=== PATIENT | female | born 1960 | race Caucasian/White ===

== ENCOUNTER 2019-10-21 06:50 | Emergency (ER) | payer BC ==
--- OUTSIDE RECORDS SUMMARY | 2019-10-21 06:52 | XMS REPORT ---
:1960 [facility] [address] [place] [address] Care Team Providers Name Role Phone Unavailable Unavailable Unavailable Problems This patient has no known problems. Allergies, Adverse Reactions, Alerts This patient has no known allergies or adverse reactions. Medications This patient has no known medications.
[2019-10-21] MEDS ORDERED: KETOROLAC 30 MG/ML INJ ONE (07:22)
--- NOTE | 2019-10-21 08:24 | RAD REPORT ---
EXAM DESCRIPTION: US - Extremity Venous Uni Ltd - 10/21/2019 8:13 am CLINICAL HISTORY: Left leg pain and swelling, pain primarily lateral calf COMPARISON: None. TECHNIQUE: Real-time sonographic evaluation of the left lower extremity deep venous system was perfo rmed. FINDINGS: Normal compressibility, flow augmentation, phasic flow and spontaneous flow are identified in the left lower extremity common femoral, superficial femoral, popliteal and posterior tibial vein s. No intraluminal filling defects seen. In the calf soft tissues no hematoma or mass identifiable. IMPRESSION: No DVT in the left lower extremity.
--- NOTE | 2019-10-21 08:38 | EDPHYS ---
Physician Documentation [facility] Name: Flower Collins Age: 59 yrs Sex: Female : 1960 Arrival Date: 10/21/2019 Time: 06:56 Bed 14 Private MD: Randall Landry B ED Physician Lj Rogers HPI: 10/21 07:12 This 59 yrs old Female presents to ER via Ambulatory with complaints of Leg cp Pain, Ankle Swelling, Leg swelling. 07:12 The patient presents with pain, that is acute, swelling, tenderness. The complaints cp affect the lateral aspect of left calf and left calf. 07:12 Onset: The symptoms/episode began/occurred 3 day(s) ago. cp 07:12 Context: resulted from an unknown cause, the patient can fully bear weight, the patient cp is able to ambulate, with mild difficulty. Modifying factors: the symptoms are aggravated by movement, laying on back. Associated signs and symptoms: Pertinent positives: calf tenderness, Pertinent negatives numbness, tingling, warmth, weakness. Treatment prior to arrival includes: no previous treatment. Historical: - Allergies: 07:13 No Known Allergies; jl7 - Home Meds: 07:13 levothyroxine 175 mcg tab 1 tab once daily [Active]; diclofenac sodium 50 mg oral TbEC jl7 [Active]; pantoprazole 40 mg oral TbEC [Active]; hydrochlorothiazide 25 mg Oral tab [Active]; Divigel transdermal transdermal [Active]; - PMHx: 07:13 Hypertension; Hypothyroidism; GERD; jl7 - PSHx: 07:13 Cholecystectomy; Hysterectomy; Tonsillectomy; jl7 - Immunization history:: Adult Immunizations unknown. - Coronavirus screen:: The patient has NOT traveled to [place], [place], or [place] in the past 14 days. Proceed with normal triage process as indicated. - Social history:: Smoking status: Patient denies any tobacco usage or history of. - Ebola Screening: : No symptoms or risks identified at this time. ROS: 07:20 Constitutional: Negative for body aches, chills, fever, poor PO intake. cp 07:20 Eyes: Negative for injury, pain, redness, and discharge. cp 07:20 Cardiovascular: Negative for chest pain, palpitations. cp 07:20 ENT: Negative for drainage from ear(s), ear pain, sore throat, difficulty swallowing, cp difficulty handling secretions. 07:20 Respiratory: Negative for cough, shortness of breath, wheezing. 07:20 Abdomen/GI: Negative for abdominal pain, vomiting, diarrhea, constipation. 07:20 Back: Negative for injury or acute deformity, pain with movement, radiated pain. 07:20 MS/extremity: Positive for pain, swelling, tenderness, of the left leg, Negative for injury or acute deformity, decreased range of motion, paresthesias. 07:20 Skin: Negative for rash. 07:20 Neuro: Negative for altered mental status, headache, weakness. 07:20 All other systems are negative. Exam: 07:30 Constitutional: The patient appears in no acute distress, alert, awake, non-toxic, well cp developed, well nourished, obese. 07:30 Head/Face: Normocephalic, atraumatic. cp 07:30 Eyes: Periorbital structures: appear normal, Conjunctiva: normal, Sclera: no appreciated abnormality, Lids and lashes: appear normal, bilaterally. 07:30 ENT: External ear(s): are unremarkable, Nose: is normal, Mouth: is normal. 07:30 Chest/axilla: Inspection: normal. 07:30 Cardiovascular: Rate: normal. 07:30 Respiratory: the patient does not display signs of respiratory distress, Respirations: normal, labored breathing. 07:30 Abdomen/GI: Exam negative for discomfort, distension, guarding, Inspection: abdomen appears normal. 07:30 Back: pain, is absent, ROM is normal, vertebral tenderness, is not appreciated. 07:30 Musculoskeletal/extremity: Extremities: grossly normal except: noted in the posterior aspect of left leg and buttock: pain, swelling, tenderness, Perfusion: the extremity is normally perfused throughout, Sensation intact. DVT Exam: pain, swelling, tenderness. 07:30 Skin: cellulitis, is not appreciated, no rash present. 07:30 Neuro: Motor: moves all fours, strength is normal, Gait: is steady. Vital Signs: 07:13 BP 187 / 99; Pulse 94; Resp 17 S; Temp 98(O); Pulse Ox 99% on R/A; Weight 109.77 kg jl7 (R); Height 5 ft. 4 in. (162.56 cm) (R); Pain 5/10; 08:50 BP 153 / 106; Pulse 80; Resp 16; Pulse Ox 97% ; Pain 2/10; jl7 07:13 Body Mass Index 41.54 (109.77 kg, 162.56 cm) jl7 MDM: 07:02 Patient medically screened. cp 07:30 Differential diagnosis: DVT, sciatica, strain. cp 08:36 Data reviewed: vital signs, nurses notes, radiologic studies, ultrasound, and as a cp result, I will discharge patient. 08:36 Counseling: I had a detailed discussion with the patient and/or guardian regarding: the cp historical points, exam findings, and any diagnostic results supporting the discharge/admit diagnosis, radiology results, to return to the emergency department if symptoms worsen or persist or if there are any questions or concerns that arise at home. 10/21 07:10 Order name: Extremity Venous Unilateral Ltd cp 10/21 08:25 Order name: EDMS Administered Medications: 07:20 Drug: TORadol 60 mg Route: IM; Site: right deltoid; bp 07:50 Follow up: Response: No adverse reaction; Pain is decreased jl7 Disposition: 09:52 Co-signature as Attending Physician, Lj Rogers MD I agree with the assessment and kdr plan of care. Disposition: 10/21/19 08:37 Discharged to Home. Impression: Sciatica, left side. - Condition is Stable. - Discharge Instructions: Sciatica, Back Exercises. - Prescriptions for Cyclobenzaprine 10 mg Oral Tablet - take 1 tablet by ORAL route every 8 hours As needed no driving while taking medication; 20 tablet. Medrol (Noel) 4 mg Oral Tablets, Dose Pack - take 1 tablet by ORAL route as directed - follow package instructions; 1 packet. Tramadol 50 mg Oral Tablet - take 1 tablet by ORAL route every 8 hours as needed. no driving while taking medication; 20 tablet. - Medication Reconciliation Form, Thank You Letter, Antibiotic Education, Prescription Opioid Use form. - Follow up: Private Physician; When: 2 - 3 days; Reason: Recheck today's complaints. - Problem is new. - Symptoms have improved. Signatures: Dispatcher [employer] EDMS Lj Rogers MD MD kdr Page, Corey, PA PA cp Duane Garibay RN RN jl7 Rian Carrillo RN RN bp Corrections: (The following items were deleted from the chart) 08:52 08:37 10/21/2019 08:37 Discharged to Home. Impression: Sciatica, left side. Condition jl7 is Stable. Forms are Medication Reconciliation Form, Thank You Letter, Antibiotic Education, Prescription Opioid Use. Follow up: Private Physician; When: 2 - 3 days; Reason: Recheck today's complaints. Problem is new. Symptoms have improved. cp
--- NOTE | 2019-10-21 08:38 | ER ---
Nurse's Notes [facility] Name: Flower Collins Age: 59 yrs Sex: Female : 1960 Arrival Date: 10/21/2019 Time: 06:56 Bed 14 Private MD: Randall Landry B Diagnosis: Sciatica, left side Presentation: 10/21 07:09 Presenting complaint: Patient states: Left calf pain x 4 days, radiates to left thigh. jl7 Transition of care: patient was not received from another setting of care. Onset of symptoms was October 17, 2019. Risk Assessment: Do you want to hurt yourself or someone else? Patient reports no desire to harm self or others. Initial Sepsis Screen: Does the patient meet any 2 criteria? No. Patient's initial sepsis screen is negative. Does the patient have a suspected source of infection? No. Patient's initial sepsis screen is negative. Care prior to arrival: None. 07:09 Method Of Arrival: Ambulatory jl7 07:09 Acuity: STEVEN 4 jl7 Triage Assessment: 07:13 General: Appears in no apparent distress. uncomfortable, Behavior is calm, cooperative, jl7 appropriate for age. Pain: Complains of pain in left calf Pain radiates to left hamstring Pain currently is 5 out of 10 on a pain scale. at worst was 11 out of 10 on a pain scale. Quality of pain is described as shooting, throbbing, Pain began 2-3 days ago. Is continuous, Also complains of sleeplessness. Neuro: Level of Consciousness is awake, alert, obeys commands, Oriented to person, place, time, situation. Cardiovascular: Patient's skin is warm and dry. Pulses are palpable in left dorsalis pedis artery. Respiratory: Airway is patent Respiratory effort is even, unlabored, Respiratory pattern is regular, symmetrical. Derm: Skin is pink, warm \T\ dry. Musculoskeletal: Reports pain in left calf. Historical: - Allergies: 07:13 No Known Allergies; jl7 - Home Meds: 07:13 levothyroxine 175 mcg tab 1 tab once daily [Active]; diclofenac sodium 50 mg oral TbEC jl7 [Active]; pantoprazole 40 mg oral TbEC [Active]; hydrochlorothiazide 25 mg Oral tab [Active]; Divigel transdermal transdermal [Active]; - PMHx: 07:13 Hypertension; Hypothyroidism; GERD; jl7 - PSHx: 07:13 Cholecystectomy; Hysterectomy; Tonsillectomy; jl7 - Immunization history:: Adult Immunizations unknown. - Coronavirus screen:: The patient has NOT traveled to [place], [place], or [place] in the past 14 days. Proceed with normal triage process as indicated. - Social history:: Smoking status: Patient denies any tobacco usage or history of. - Ebola Screening: : No symptoms or risks identified at this time. Screenin:15 Abuse screen: Denies threats or abuse. Denies injuries from another. Nutritional jl7 screening: No deficits noted. Tuberculosis screening: No symptoms or risk factors identified. Fall Risk None identified. Assessment: 07:15 General: see triage assessment. jl7 08:15 Reassessment: Patient appears in no apparent distress at this time. Patient and/or jl7 family updated on plan of care and expected duration. Pain level reassessed. Patient is alert, oriented x 3, equal unlabored respirations, skin warm/dry/pink. Pain rated 2/10 at this time Patient states symptoms have improved. Vital Signs: 07:13 BP 187 / 99; Pulse 94; Resp 17 S; Temp 98(O); Pulse Ox 99% on R/A; Weight 109.77 kg jl7 (R); Height 5 ft. 4 in. (162.56 cm) (R); Pain 5/10; 08:50 BP 153 / 106; Pulse 80; Resp 16; Pulse Ox 97% ; Pain 2/10; jl7 07:13 Body Mass Index 41.54 (109.77 kg, 162.56 cm) jl7 ED Course: 06:56 Patient arrived in ED. es 06:57 Randall Landry MD is Private Physician. es 06:58 Duane Garibay RN is Primary Nurse. jl7 06:58 Manas Rivers PA is PSYCHIATRICP. cp 06:59 Lj Rogers MD is Attending Physician. cp 07:10 Triage completed. jl7 07:13 Arm band placed on right wrist. jl7 07:15 Patient has correct armband on for positive identification. Placed in gown. Bed in low jl7 position. Call light in reach. Side rails up X 1. Pulse ox on. NIBP on. Warm blanket given. 08:50 No provider procedures requiring assistance completed. Patient did not have IV access jl7 during this emergency room visit. Administered Medications: 07:20 Drug: TORadol 60 mg Route: IM; Site: right deltoid; bp 07:50 Follow up: Response: No adverse reaction; Pain is decreased jl7 Outcome: 08:37 Discharge ordered by . cele 08:50 Discharged to home ambulatory. jl7 08:50 Condition: stable 08:50 Discharge instructions given to patient, Instructed on discharge instructions, follow up and referral plans. medication usage, Demonstrated understanding of instructions, follow-up care, medications, Prescriptions given X 3. 08:52 Patient left the ED. jl7 Signatures: Mary Ann Lynn Corey, PA PA cp Leal, Jahala RN RN jl7 iRan Carrillo RN RN bp
[2019-10-21 08:57] VITALS: TEMP 98
[2019-10-21 08:59] VITALS: BP 153/106; O2SAT 97
== END 2019-10-21 08:52 | disposition home or self-care (01) ==
LOC: ER 06:50
DX: M54.32 Sciatica, left side (principal); I10 Essential (primary) hypertension; E03.9 Hypothyroidism, unspecified
CPT/HCPCS: 93971; 96372; 99283

== ENCOUNTER 2019-10-28 07:23 | Emergency (ER) | payer BC ==
--- OUTSIDE RECORDS SUMMARY | 2019-10-28 07:25 | XMS REPORT ---
:1960 [facility] Address [address] [place] [address] Care Team Providers Name Role Phone Unavailable Unavailable Unavailable Problems This patient has no known problems. Allergies, Adverse Reactions, Alerts This patient has no known allergies or adverse reactions. Medications This patient has no known medications.
--- NOTE | 2019-10-28 08:02 | ER ---
Nurse's Notes [facility] Name: Flower Collins Age: 59 yrs Sex: Female : 1960 Arrival Date: 10/28/2019 Time: 07:26 Bed 8 Private MD: Randall Landry B Diagnosis: Pain in left lower leg-Soleus strain Presentation: 10/28 07:31 Presenting complaint: Patient states: Left lower calf and left ankle pain, pain worsens sg with ambulating, reports pain is worse with extending toes while walking, denies injury/trauma at this time. Transition of care: patient was not received from another setting of care. Onset of symptoms was October 28, 2019. Risk Assessment: Do you want to hurt yourself or someone else? Patient reports no desire to harm self or others. Initial Sepsis Screen: Does the patient meet any 2 criteria? No. Patient's initial sepsis screen is negative. Does the patient have a suspected source of infection? No. Patient's initial sepsis screen is negative. Care prior to arrival: None. 07:31 Method Of Arrival: Wheelchair sg 07:31 Acuity: STEVEN 4 sg Triage Assessment: 07:34 General: Appears in no apparent distress. uncomfortable, well groomed, well developed, sg well nourished, Behavior is calm, cooperative, appropriate for age. Pain: Complains of pain in lateral aspect of left calf, left lateral ankle, left calf and left Achilles Quality of pain is described as aching. Neuro: Level of Consciousness is awake, alert, obeys commands, Oriented to person, place, time, [employer]ator are equal bilaterally Moves all extremities. Cardiovascular: Patient's skin is warm and dry. Chest pain is denied. Respiratory: Airway is patent Respiratory effort is even, unlabored, Respiratory pattern is regular, symmetrical. GI: No signs and/or symptoms were reported involving the gastrointestinal system. : No signs and/or symptoms were reported regarding the genitourinary system. Derm: Skin is pink, warm \T\ dry. Musculoskeletal: Circulation, motion, and sensation intact. Range of motion: intact in all extremities. Historical: - Allergies: 07:34 No Known Allergies; sg - PMHx: 07:34 GERD; Hypertension; Hypothyroidism; sg - PSHx: 07:34 Cholecystectomy; Hysterectomy; Tonsillectomy; sg - Immunization history:: Adult Immunizations up to date. - Coronavirus screen:: The patient has NOT traveled to [place], [place], or [place] in the past 14 days. The patient has NOT had contact with known/suspected case of Coronavirus? Proceed with normal triage procedures. - Social history:: Smoking status: Patient denies any tobacco usage or history of. - Family history:: not pertinent. - Ebola Screening: : Patient negative for fever greater than or equal to 101.5 degrees Fahrenheit, and additional compatible Ebola Virus Disease symptoms Patient denies exposure to infectious person Patient denies travel to an Ebola-affected area in the 21 days before illness onset No symptoms or risks identified at this time. Screenin:05 Abuse screen: Denies threats or abuse. Denies injuries from another. Nutritional sg screening: No deficits noted. Tuberculosis screening: No symptoms or risk factors identified. Never had TB. Fall Risk None identified. Assessment: 07:30 General: Appears in no apparent distress. well groomed, well developed, well nourished. sg Vital Signs: 07:32 BP 163 / 106; Pulse 78; Resp 16; Temp 97.7; Pulse Ox 100% on R/A; Pain 6/10; sg 08:20 BP 140 / 88; Pulse 77; Resp 17; Temp 97.7; Pulse Ox 100% on R/A; sg ED Course: 07:26 Patient arrived in ED. rg4 07:26 Randall Landry MD is Private Physician. rg4 07:31 Manas Stuart MD is Attending Physician. minnie 07:32 Triage completed. sg 07:34 Arm band placed on. sg 07:36 Patient has correct armband on for positive identification. Bed in low position. Call sg light in reach. Side rails up X2. Pulse ox on. NIBP on. 07:44 Duane Garibay RN is Primary Nurse. jl7 08:00 Randall Landry MD is Referral Physician. minnie 08:02 Naoh Ramirez MD is Referral Physician. minnie 08:05 Liam wrap to left ankle. sg 08:22 No provider procedures requiring assistance completed. Patient did not have IV access sg during this emergency room visit. Administered Medications: 08:00 Drug: Motrin 600 mg Route: PO; sg 08:38 Follow up: Response: No adverse reaction sg Outcome: 08:02 Discharge ordered by MD. hartman 08:22 Discharged to home via wheelchair. 08:22 Condition: good 08:22 Discharge instructions given to patient, Instructed on discharge instructions, follow up and referral plans. no drinking with medication, no driving heavy equipment, medication usage, safety practices, crutch walking, Demonstrated understanding of instructions, follow-up care, medications, Prescriptions given X 2. 08:25 Patient left the ED. iw Signatures: Fransisco Diaz RN Manas Espino MD MD cha Williams, Irene, RN RN iw Garcia, Rubi rg4 Duane Garibay RN RN jl7
[2019-10-28] MEDS ORDERED: IBUPROFEN 200 MG TAB PO ONE (08:03)
--- NOTE | 2019-10-28 08:03 | EDPHYS ---
Physician Documentation [facility] Name: Flower Collins Age: 59 yrs Sex: Female : 1960 Arrival Date: 10/28/2019 Time: 07:26 Bed 8 Private MD: Randall Landry B ED Physician Manas Stuart HPI: 10/28 07:58 This 59 yrs old Female presents to ER via Wheelchair with complaints of Leg minnie Pain. 07:58 The patient presents with decreased range of motion, pain. The complaints affect the minnie left calf and left Achilles. Context: The problem was sustained at an unknown site. Onset: The symptoms/episode began/occurred 3 day(s) ago. Modifying factors: The symptoms are alleviated by elevating leg, the symptoms are aggravated by nothing. Associated signs and symptoms: The patient has no apparent associated signs or symptoms. Severity of symptoms: At their worst the symptoms were mild, moderate, in the emergency department the symptoms are unchanged. Historical: - Allergies: 07:34 No Known Allergies; sg - PMHx: 07:34 GERD; Hypertension; Hypothyroidism; sg - PSHx: 07:34 Cholecystectomy; Hysterectomy; Tonsillectomy; sg - Immunization history:: Adult Immunizations up to date. - Coronavirus screen:: The patient has NOT traveled to [place], [place], or [place] in the past 14 days. The patient has NOT had contact with known/suspected case of Coronavirus? Proceed with normal triage procedures. - Social history:: Smoking status: Patient denies any tobacco usage or history of. - Family history:: not pertinent. - Ebola Screening: : Patient negative for fever greater than or equal to 101.5 degrees Fahrenheit, and additional compatible Ebola Virus Disease symptoms Patient denies exposure to infectious person Patient denies travel to an Ebola-affected area in the 21 days before illness onset No symptoms or risks identified at this time. ROS: 07:58 Constitutional: Negative for fever, chills, and weight loss, Eyes: Negative for injury, minnie pain, redness, and discharge, ENT: Negative for injury, pain, and discharge, Neck: Negative for injury, pain, and swelling, Cardiovascular: Negative for chest pain, palpitations, and edema, Respiratory: Negative for shortness of breath, cough, wheezing, and pleuritic chest pain, Abdomen/GI: Negative for abdominal pain, nausea, vomiting, diarrhea, and constipation, Back: Negative for injury and pain, : Negative for injury, bleeding, discharge, and swelling, Skin: Negative for injury, rash, and discoloration, Neuro: Negative for headache, weakness, numbness, tingling, and seizure, Psych: Negative for depression, anxiety, suicide ideation, homicidal ideation, and hallucinations, Allergy/Immunology: Negative for hives, rash, and allergies, Endocrine: Negative for neck swelling, polydipsia, polyuria, polyphagia, and marked weight changes, Hematologic/Lymphatic: Negative for swollen nodes, abnormal bleeding, and unusual bruising. 07:58 MS/extremity: Positive for decreased range of motion, pain, of the left calf. Exam: 07:58 Constitutional: This is a well developed, well nourished patient who is awake, alert, minnie and in no acute distress. Head/Face: Normocephalic, atraumatic. Eyes: Pupils equal round and reactive to light, extra-ocular motions intact. Lids and lashes normal. Conjunctiva and sclera are non-icteric and not injected. Cornea within normal limits. Periorbital areas with no swelling, redness, or edema. ENT: Nares patent. No nasal discharge, no septal abnormalities noted. Tympanic membranes are normal and external auditory canals are clear. Oropharynx with no redness, swelling, or masses, exudates, or evidence of obstruction, uvula midline. Mucous membranes moist. Neck: Trachea midline, no thyromegaly or masses palpated, and no cervical lymphadenopathy. Supple, full range of motion without nuchal rigidity, or vertebral point tenderness. No Meningismus. Chest/axilla: Normal chest wall appearance and motion. Nontender with no deformity. No lesions are appreciated. Cardiovascular: Regular rate and rhythm with a normal S1 and S2. No gallops, murmurs, or rubs. Normal PMI, no JVD. No pulse deficits. Respiratory: Lungs have equal breath sounds bilaterally, clear to auscultation and percussion. No rales, rhonchi or wheezes noted. No increased work of breathing, no retractions or nasal flaring. Abdomen/GI: Soft, non-tender, with normal bowel sounds. No distension or tympany. No guarding or rebound. No evidence of tenderness throughout. Back: No spinal tenderness. No costovertebral tenderness. Full range of motion. Female : Normal external genitalia. Skin: Warm, dry with normal turgor. Normal color with no rashes, no lesions, and no evidence of cellulitis. Neuro: Awake and alert, GCS 15, oriented to person, place, time, and situation. Cranial nerves II-XII grossly intact. Motor strength 5/5 in all extremities. Sensory grossly intact. Cerebellar exam normal. Normal gait. Psych: Awake, alert, with orientation to person, place and time. Behavior, mood, and affect are within normal limits. 07:58 Musculoskeletal/extremity: Extremities: decreased ROM, pain, ROM: limited active range of motion due to pain, limited passive range of motion due to pain, Circulation is intact in all extremities. Sensation intact. Compartment Syndrome exam of affected extremity: is normal. DVT Exam: no swelling, negative Homans' sign noted on exam, no appreciated bluish discoloration, no erythema, no increased warmth, pain, tenderness. Vital Signs: 07:32 BP 163 / 106; Pulse 78; Resp 16; Temp 97.7; Pulse Ox 100% on R/A; Pain 6/10; sg 08:20 BP 140 / 88; Pulse 77; Resp 17; Temp 97.7; Pulse Ox 100% on R/A; sg MDM: 07:31 Patient medically screened. [facility] 08:00 Data reviewed: vital signs, nurses notes, radiologic studies. [facility] 10/28 07:55 Order name: Liam Green; Complete Time: 08:05 [facility] Administered Medications: 08:00 Drug: Motrin 600 mg Route: PO; 08:38 Follow up: Response: No adverse reaction Disposition: 10/28/19 08:02 Discharged to Home. Impression: Pain in left lower leg - Soleus strain. - Condition is Fair. - Discharge Instructions: Musculoskeletal Pain. - Prescriptions for Ibuprofen 600 mg Oral Tablet - take 1 tablet by ORAL route every 6 hours As needed take with food; 20 tablet. Tylenol- Codeine #3 300-30 mg Oral Tablet - take 2 tablet by ORAL route every 6 hours As needed; 30 tablet. - Medication Reconciliation Form, Thank You Letter, Antibiotic Education, Prescription Opioid Use form. - Follow up: Randall Landry MD; When: 2 - 3 days; Reason: Recheck today's complaints, Continuance of care, Re-evaluation by your physician. Follow up: Noah Ramirez MD; When: 2 - 3 days; Reason: Recheck today's complaints, Continuance of care, Re-evaluation by your physician. - Problem is new. - Symptoms have improved. Signatures: Fransisco Diaz RN RN sg Manas Stuart MD MD cha Williams, Irene, RN RN iw Corrections: (The following items were deleted from the chart) 08:02 08:02 10/28/2019 08:02 Discharged to Home. Impression: Pain in left lower leg - Soleus minnie strain. Condition is Fair. Forms are Medication Reconciliation Form, Thank You Letter, Antibiotic Education, Prescription Opioid Use. Follow up: Randall Landry; When: 2 - 3 days; Reason: Recheck today's complaints, Continuance of care, Re-evaluation by your physician. Problem is new. Symptoms have improved. [facility] 08:05 07:55 Crutches ordered. [facility] 08:25 08:02 10/28/2019 08:02 Discharged to Home. Impression: Pain in left lower leg - Soleus iw strain. Condition is Fair. Forms are Medication Reconciliation Form, Thank You Letter, Antibiotic Education, Prescription Opioid Use. Follow up: Randall Landry; When: 2 - 3 days; Reason: Recheck today's complaints, Continuance of care, Re-evaluation by your physician. Follow up: Dr. Noah Ramirez; When: 2 - 3 days; Reason: Recheck today's complaints, Continuance of care, Re-evaluation by your physician. Problem is new. Symptoms have improved. [facility]
[2019-10-28 08:44] VITALS: BP 163/106; TEMP 97.7; O2SAT 100
== END 2019-10-28 08:25 | disposition home or self-care (01) ==
LOC: ER 07:23
DX: S86.112A Strain of other muscle(s) and tendon(s) of posterior muscle group at lower leg level, left leg, initial encounter (principal); I10 Essential (primary) hypertension
CPT/HCPCS: 99284